=== PATIENT | female | born 1990 | race Caucasian/White ===

== ENCOUNTER 2018-09-06 11:37 | Emergency (ER) | payer MEDICAID ==
[~2018-09-06] VITALS: Ht 157.5 cm; Wt 59.0 kg
[2018-09-06 11:37] VITALS: BP_SYST 126
[2018-09-06] MEDS ORDERED: LIDOCAINE 2%, 20 ML MDV ONE (12:43)
[2018-09-06 13:50] VITALS: BP_SYST 126
== END 2018-09-06 13:10 | disposition home or self-care (01) ==
LOC: EDBD 11:37 → SED 11:37
DX: S81.011A Laceration without foreign body, right knee, initial encounter (principal); W19.XXXA Unspecified fall, initial encounter; Y93.89 Activity, other specified; Y92.69 Other specified industrial and construction area as the place of occurrence of the external cause; Y99.8 Other external cause status
CPT/HCPCS: 12001; 99283; J2001